=== PATIENT | male | born 1960 | race Caucasian/White ===

== ENCOUNTER 2019-01-28 10:20 | Emergency (ER) | payer OTHER, SELFPAY ==
[2019-01-28 10:24] VITALS: BP 123/82; PULSE 85; RESP 16; TEMP 36.6; O2SAT 98
--- NOTE | 2019-01-28 10:33 | W.ED.GENAD ---
Discharge Plan Disposition Patient Disposition: HOME Discharge Details Chief Complaint: Chest Pain Clinical Impression: Palpitations Primary Care Provider: Jelly,Local ED Provider: Alo Dowling Home Meds and New Rx's Prescriptions: No Action No Known Home Meds RF: 0 Discharge Instructions Instructions: Palpitations (ED) Additional Instructions: your lab work, ecg and telemetry monitoring here was normal follow up with your primary care provider within 1-2 weeks if you have worsening symptoms, chest pain/pressure or difficulty breathing return to the emergency department Medical Decision Making 58 yo male who has no medical problems and not on meds who is in the area vacationing from [employer], who comes in with palpitations. He states last night he felt his heart beating irregularly and fast. He denies any pain or pressure with this or sob. IT lasted throughout the night and resolved about 1-2 hours ago. He has no prior cardiac history. He is in no distress speaking in full sentences. HE has normal vitals, no murmurs, clear lungs and normal tele. Could be afib vs svt vs aflutter vs pvc's, will monitor here and check for electrolyte abnormalities. No pain or pressure so unlikely acs, will send troponin, heart score is 2. pt remains stable and asymptomatic with normal tele and labs. Feel he is stable for d/c, advised f/u with pcp and return precautions given Differential Diagnosis afib, svt, aflutter, pvcs Lab Data Lab results reviewed: Yes I reviewed the patient's lab results. ECG Data Attestation: I personally reviewed and interpreted this ECG (s) as follows: Prior ECG tracings: not available for review Interpretation: sinus rhythm, rate of 85, pr 166, no acute st t wave ischemic findings HPI General Mode of arrival: ambulatory. Date/Time Provider Initiated Documentation: 01/28/19 10:29. Limitations to Documentation: no limitations. Information obtained by: patient. History of Present Illness 58 year old M presents to the emergency department with the chief complaint of palpitations, described as moderate, Quality is described as other (irregular), and is localized to the chest. Patient reports no radiation. Patient started experiencing this day(s) (1) and it has been now resolved. No relieving factors improve symptom(s), No exacerbating factors reported . Patient did receive the following treatments prior to arrival, none Related Data Home Medications Medication Instructions Recorded Confirmed Unknown [No Known Home Meds] 01/28/19 01/28/19 Allergies Allergy/AdvReac Type Severity Reaction Status Date / Time No Known Allergies Allergy Unverified 01/28/19 11:11 Review of Systems Review of Systems All systems reviewed & are unremarkable except as noted in HPI and below Constitutional Denies chills, Denies fever(s) and Denies weakness Cardiovascular Denies chest pain and Denies dyspnea Respiratory Denies cough and Denies dyspnea Gastrointestinal Denies abdominal pain, Denies nausea and Denies vomiting Musculoskeletal Denies joint swelling Neurologic Denies weakness Psychiatric Denies depression Endocrine Denies heat intolerance PFSH Social History Smoking/Tobacco Use Status: Former Tobacco Use Alcohol Intake: current Alcohol Intake frequency: a few times a month Substance use type: does not use Do you feel safe in your relationship?: Yes Exam Const General: no acute distress Orientation: alert HENMT Head: normal to inspection Ears: external ears normal General nose exam: external nose normal Mouth: moist mucous membranes Eyes General: appearance normal, both eyes and all related structures Neck Neck: normal visual inspection Resp Effort & Inspection: normal respiratory effort and able to speak in complete sentences Cardio Rate: regular rate Skin General skin exam: no rashes or lesions noted Neuro General: alert and oriented x3 Extrem General: normal to inspection Psych Mental Status: mental status grossly normal
[2019-01-28 10:46] VITALS: RESP 16
[2019-01-28 11:01] LABS: Abs Immature Grans 0.04 k/cumm (0.0-0.09); Absolute Basophil Count 0.03 k/cumm (0.0-0.2); Absolute Eosinophil Count 0.03 k/cumm (0.0-0.7); Absolute Lymphocyte Count 1.45 k/cumm (1.2-3.4); Absolute Monocyte Count 0.54 k/cumm (0.11-0.7); Absolute Neutrophil Count 5.13 k/cumm (1.2-6.7); Basophils % 0.4; Eosinophils % 0.4; HCT 45.4 % (40.0-50.0); HGB 15.5 g/dL (13.5-17.5); Immature Grans % 0.6; Lymphocytes % 20.1; Mean Corp. HGB Concentration 34.1 g/dL (32.0-36.0); Mean Corpuscular Hemoglobin 30.3 pg (27.0-33.0); Mean Corpuscular Volume 88.7 fL (80-95); Mean Platelet Volume 10.4 fL (8.0-11.0); Monocytes % 7.5; Platelet Count 244 x1000/uL (130-400); RBC 5.12 m/cumm (4.50-6.00); RBC Distribution Width 13.2 % (11.8-14.1); White Blood Cell Count 7.22 k/cumm (4.4-10.8)
[2019-01-28 11:16] LABS: ALT 19 U/L (12-78); AST 10 U/L (15-37); Albumin 3.5 g/dL (3.4-5.0); Alkaline Phosphatase 78 U/L (46-116); Anion Gap 8.5 mmol/L (3-11); BUN 16 mg/dL (7-18); Bilirubin, Total 0.4 mg/dL (0.2-1.0); CO2 24.5 mmol/L (21.0-32.0); CREATININE 0.89 mg/dL (0.70-1.30); Calcium 8.4 mg/dL (8.5-10.1); Chloride 107 mmol/L (98-107); Glucose 95 mg/dL (70-100); Potassium 3.7 mmol/L (3.5-5.1); Sodium 140 mmol/L (136-145); Total Protein 6.7 g/dL (6.4-8.2)
[2019-01-28 11:20] LABS: Troponin I < 0.05 ng/mL (0.00-0.06)
== END 2019-01-28 11:48 | disposition home or self-care (01) ==
PROVIDERS: Emergency Provider Emergency Medicine
DX: R00.2 Palpitations (principal)
CPT/HCPCS: 36415; 80053; 80076; 93005; 99284; 84484; 85025; 93010

== ENCOUNTER 2020-02-19 11:30 | Emergency (ER) | payer OTHER, SELFPAY ==
[2020-02-19] VITALS (14 sets, daily range): BP systolic 107–121; BP diastolic 71–88; PULSE 69–85; RESP 10–29; TEMP 36.6; O2SAT 94–98
--- NOTE | 2020-02-19 11:30 | RT.EKG_ITS ---
APPROVED REPORT Exam: Resting ECG Patient Location: E HR:84 bpm ECG Measurements Heart Rate 84 AXIS MD 168 P 78 QRSd 77 QRS 21 QT 341 T 60 QTc 404 Conclusion Sinus rhythm...normal P axis, V-rate 60- 99 Low voltage, extremity leads...all extremity leads <0.5mV
[2020-02-19 12:02] LABS: Abs Immature Grans 0.06 10^3/uL (0.0-0.06); Absolute Basophil Count 0.04 10^3/uL (0.0-0.2); Absolute Eosinophil Count 0.08 10^3/uL (0.0-0.7); Absolute Lymphocyte Count 2.12 10^3/uL (1.2-3.4); Absolute Monocyte Count 0.57 10^3/uL (0.1-0.8); Absolute Neutrophil Count 4.81 10^3/uL (1.2-6.7); Basophils % 0.5; HCT 49.2 % (40.0-50.0); HGB 16.4 g/dL (13.5-17.5); Immature Grans % 0.8; Lymphocytes % 27.6; MCH 30.4 pg (27.0-33.0); MCHC 33.3 % (32.0-36.0); MCV 91.3 fL (80-95); MPV 10.9 fL (8.0-11.0); Monocytes % 7.4; Neutrophils % 62.7; Nucleated RBC 0 %; Platelet Count 243 10^3/uL (130-400); RBC 5.39 10^6/uL (4.36-5.78); RDW 13.3 % (11.8-14.1); RDW-SD 44.8 fL; WBC 7.68 10^3/uL (4.4-10.8)
[2020-02-19] MEDS: Aspirin 81 MG CHEW (12:18)
[2020-02-19 12:23] LABS: ALT 42 U/L (16-63); AST 20 U/L (15-37); Albumin 3.8 g/dL (3.4-5.0); Alkaline Phosphatase 85 U/L (46-116); Anion Gap 4.1 mmol/L (3-11); BUN 12 mg/dL (7-18); Bilirubin, Total 0.7 mg/dL (0.2-1.0); CO2 28.9 mmol/L (21.0-32.0); CREATININE 0.91 mg/dL (0.70-1.30); Calcium 8.7 mg/dL (8.5-10.1); Chloride 109 mmol/L (98-107); Glucose 90 mg/dL (74-106); Magnesium 1.9 mg/dL (1.8-2.4); Potassium 3.9 mmol/L (3.5-5.1); Sodium 142 mmol/L (136-145); Total Protein 7.1 g/dL (6.4-8.2); Troponin I < 0.05 ng/mL (<0.06)
--- NOTE | 2020-02-19 12:34 | ED.GENADUL_ITS ---
Discharge Plan Disposition Patient Disposition: HOME Condition: Stable Discharge Details Chief Complaint: Palpitatns Clinical Impression: Palpitations Primary Care Provider: Jelly,Local ED Provider: Kemal Nuñez Home Meds and New Rx's Prescriptions: No Action No Known Home Meds RF: 0 Discharge Instructions Instructions: Heart Palpitations (ED) Additional Instructions: Reduce caffeine intake. Please take aspirin 81 mg daily. Please contact your primary care physician to arrange follow-up. Return to the ER for any worsening or new concerning symptoms. Medical Decision Making 60-year-old male presents with palpitations that started last night and stopped prior to arrival. Palpitations noted to be irregular fast heartbeat. No associated symptoms. Patient now asymptomatic. Patient hemodynamically stable. Exam unremarkable. Screening ECG was reviewed and interpreted by me: Please see report. Sinus rhythm 84 bpm, subtle T wave inversion lateral appears unchanged compared to prior from a year ago. No signs of Brugada, WPW, hypertrophic cardiomyopathy. I considered electrolyte abnormalities, anemia, and thyroid dysfunction. Labs reviewed and nondiagnostic. Patient reassessed and has remained stable. Patient recently moved to the area and does not yet have a primary care physician. I will ask care management to assist in arranging outpatient follow-up. I will initiate outpatient cardiac monitoring today so that there is no delay given that he does not have a PCP currently. Patient was encouraged to reduce caffeine intake and to follow-up with PCP. He understands he should return immediately for any worsening or new concerning symptoms. HPI General Mode of arrival: ambulatory . Date/Time Provider Initiated Documentation: 02/19/20 11:46 . Limitations to Documentation: no limitations . Information obtained by: patient . HPI Narrative: 60-year-old male presents with chief complaint of palpitations. Patient has palpitations started around 1130 last night and persisted all night. He woke up with them. Palpitations feel like irregular fast heartbeat. No associated dizziness, shortness of breath, chest pain or nausea. No other symptoms. Patient had similar about 1 year ago and was seen here in the emergency department, noted to be in sinus rhythm at the time and was told to follow-up with cardiology. He did not have recurrent symptoms and did not follow-up. Symptoms have now resolved as of about 30 minutes prior to arrival. Related Data Home Medications Medication Instructions Recorded Confirmed Unknown [No Known Home Meds] 01/28/19 02/19/20 Allergies Allergy/AdvReac Type Severity Reaction Status Date / Time No Known Allergies Allergy Unverified 02/19/20 11:42 General Stated Complaint: Palpitatns PAPITO: 2 Review of Systems All systems reviewed & are unremarkable except as noted in HPI and below Constitutional Constitutional: Denies fever(s) Cardiovascular Cardiovascular: Reports as per HPI and Denies dyspnea Respiratory Respiratory: Denies dyspnea PFSH Social History Smoking/Tobacco Use Status: Former Tobacco Use Alcohol Intake: current Alcohol Intake frequency: a few times a month Substance use type: does not use Do you feel safe at home: Yes Do you feel safe in your relationship?: Yes Exam Const General: cooperative and no acute distress HENMT Mouth: moist mucous membranes Eyes Conjunctivae: normal conjunctivae Sclera: normal sclerae Neck Neck: trachea midline and supple Thyroid: thyroid normal Resp Auscultation: clear to auscultation bilaterally, no rales, no rhonchi and no wheezes Cardio Jugular venous pressure: no JVD Rate: regular rate and not tachycardic Rhythm: regular rhythm GI Palpation: soft, not firm, no guarding, no masses, not rigid and nontender Skin General skin exam: no rashes or lesions noted Neuro General: patient alert, patient awake, patient oriented x3 and tone normal Extrem General: no edema Psych Appearance: grossly normal Mental Status: mental status grossly normal Course Vital Signs Vital signs: Vital Signs Respiratory Rate 11 L 02/19/20 11:36 Pulse Oximetry 98 02/19/20 11:36 Temperature 36.6 C 02/19/20 11:39 Pulse 81 02/19/20 12:15 Pulse 83 02/19/20 12:20 Respiratory Rate 26 H 02/19/20 12:20 Respiratory Effort Non-Labored 02/19/20 11:42 Blood Pressure 121/88 02/19/20 12:15 Blood Pressure Mean 96 02/19/20 12:15 Blood Pressure Position Supine 02/19/20 11:39 Pulse Oximetry 95 02/19/20 12:20 Oxygen Delivery Method Room Air 02/19/20 11:39 Oxygen Flow Rate 0 02/19/20 11:39 Pain Level 0 02/19/20 12:13 Lab/Test Results Lab/Test Results: Laboratory Tests Range/Units 02/19/20 02/19/20 11:50 11:50 WBC (4.4-10.8) 10^3/uL 7.68 RBC (4.36-5.78) 10^6/uL 5.39 Hgb (13.5-17.5) g/dL 16.4 Hct (40.0-50.0) % 49.2 MCV (80-95) fL 91.3 MCH (27.0-33.0) pg 30.4 MCHC (32.0-36.0) % 33.3 RDW (11.8-14.1) % 13.3 Plt Count (130-400) 10^3/uL 243 MPV (8.0-11.0) fL 10.9 Immature Gran % 0.8 Neutrophils % 62.7 Lymphocytes % 27.6 Monocytes % 7.4 Eosinophils % 1.0 Basophils % 0.5 Nucleated RBC % % 0 Absolute Neutrophils (1.2-6.7) 10^3/uL 4.81 Absolute Lymphocytes (1.2-3.4) 10^3/uL 2.12 Absolute Monocytes (0.1-0.8) 10^3/uL 0.57 Absolute Eosinophils (0.0-0.7) 10^3/uL 0.08 Absolute Basophils (0.0-0.2) 10^3/uL 0.04 Sodium (136-145) mmol/L 142 Potassium (3.5-5.1) mmol/L 3.9 Chloride (98-107) mmol/L 109 H Carbon Dioxide (21.0-32.0) mmol/L 28.9 Anion Gap (3-11) mmol/L 4.1 BUN (7-18) mg/dL 12 Creatinine (0.70-1.30) mg/dL 0.91 Estimated GFR/1.73 m2 (mL/min/1.73m2) >= 60.00 Glucose (74-106) mg/dL 90 Calcium (8.5-10.1) mg/dL 8.7 Magnesium (1.8-2.4) mg/dL 1.9 Total Bilirubin (0.2-1.0) mg/dL 0.7 AST (15-37) U/L 20 ALT (16-63) U/L 42 Alkaline Phosphatase (46-116) U/L 85 Troponin I (<0.06) ng/mL < 0.05 Total Protein (6.4-8.2) g/dL 7.1 Albumin (3.4-5.0) g/dL 3.8 TSH (0.36-3.74) uIU/mL 2.80
--- NOTE | 2020-02-19 12:34 | NUR.NOTE ---
Nursing Note: Referral to get a PCP and to initiate holter monitoring given to Care Management. Garima Borrego
--- NOTE | 2020-03-14 11:09 | W.ZIOMONITOR ---
Date of service: 03/14/20 Time of Service: 11:09 ZIO [employer] Referring Provider:: Savannah Indications:: Palps Note: This is a 2-week monitor ordered for indication of palpitations. ?The patient was in normal sinus rhythm for the majority of the recording. Average heart rate was 71 bpm. ?There were 17 episodes of supraventricular tachycardia with the longest lasting 18 beats at a rate of 146 bpm. ?There were no episodes of ventricular tachycardia and rare (less than 1%) PVCs. ?There were no episodes of atrial fibrillation, no pauses grade 3 seconds no evidence of high degree heart block.
== END 2020-02-19 13:31 | disposition home or self-care (01) ==
PROVIDERS: Emergency Provider Student in an Organized Health Care Education/Training Program
DX: R00.2 Palpitations (principal)
CPT/HCPCS: 80053; 93005; 99283; 83735; 84443; 84484; 85025; 93010